=== PATIENT | male | born 1960 | race Caucasian/White ===

== ENCOUNTER → 2018-01-25 | Outpatient (CLI) | payer BC | LOC: BRMIMAGING 14:10 | PROVIDERS: ATTEND Internal Medicine | DX: Z13.820 Encounter for screening for osteoporosis (principal); M85.89 Other specified disorders of bone density and structure, multiple sites; Z79.52 Long term (current) use of systemic steroids ==

== ENCOUNTER → 2018-02-07 | Outpatient (CLI) | payer BC, OTHER | LOC: BRMIMAGING 12:29 | PROVIDERS: ATTEND Internal Medicine | DX: M48.07 Spinal stenosis, lumbosacral region (principal); M51.37 Other intervertebral disc degeneration, lumbosacral region; M53.87 Other specified dorsopathies, lumbosacral region | CPT/HCPCS: 72114-PO; 72202-PO ==

== ENCOUNTER → 2018-06-28 | Outpatient (CLI) | payer BC, OTHER | LOC: BRMIMAGING 14:13 | DX: M54.2 Cervicalgia (principal); M50.30 Other cervical disc degeneration, unspecified cervical region | CPT/HCPCS: 72050-PO ==